=== PATIENT | female | born 1950 | race Caucasian/White ===

== ENCOUNTER → 2022-01-24 | Day surgery (SDC) | payer MEDICARE, OTHER ==
[~2022-01-24] VITALS: Ht 156.2 cm; Wt 77.1 kg
[~2022-01-24] MED LIST: ACETAMINOPHEN500 M1 PO; CYMBALTA60 MG PO; DIOVAN160 MG PO; LIPITOR20 MG PO; LOPID600 MG PO; OS-CAL500 MG PO; PRESERVISION A1 EAC1 PO; PROBIOTIC1 EACH PO; TRIAMTERENE50 MG PO; ZYRTEC10 M3 PO
[2022-01-24 11:05] LABS: HCT 33.8 % (37.0-47.0); HGB 11.2 g/dl (12.5-16.0); MCH 30.5 pg (25.0-31.0); MCHC 33.1 g/dL (32.0-36.0); MCV 92.1 fL (78.0-100.0); MPV 9.7 fL (6.0-9.5); RBC 3.67 M/uL (4.20-5.40); RDW 12.4 % (11.5-14.0); WBC 7.6 K/uL (4.0-10.5)
[2022-01-24 11:33] LABS: BUN/CREAT RATIO (CALC) 25.7 RATIO; CREATININE 1.13 mg/dL (0.51-0.95); POTASSIUM 4.2 mmol/L (3.5-5.1)
== END | disposition home or self-care (01) ==
LOC: FAS 09:41
PROVIDERS: Surgery
DX: K62.89 Other specified diseases of anus and rectum (principal); N81.6 Rectocele; N81.10 Cystocele, unspecified; K64.4 Residual hemorrhoidal skin tags; Z79.899 Other long term (current) drug therapy; I10 Essential (primary) hypertension; E78.5 Hyperlipidemia, unspecified; F32.A Depression, unspecified
CPT/HCPCS: 36415; 80048; J2250; J2405; J2704; J3010; J7120